=== PATIENT | female | born 1960 | race Caucasian/White ===

== ENCOUNTER 2016-10-16 09:59 | Emergency (ER) | payer OTHER ==
[~2016-10-16] VITALS: Ht 152.4 cm; Wt 56.7 kg
[2016-10-16 12:27] VITALS: BP 131/74
== END 2016-10-16 12:27 | disposition home or self-care (01) ==
LOC: ED 09:59
DX: M25.512 Pain in left shoulder (principal); M75.92 Shoulder lesion, unspecified, left shoulder; Z88.2 Allergy status to sulfonamides

== ENCOUNTER 2017-10-23 06:53 | Emergency (ER) | payer OTHER ==
[~2017-10-23] VITALS: Ht 157.5 cm; Wt 61.2 kg
[2017-10-23 07:38] VITALS: BP 123/75
== END 2017-10-23 07:38 | disposition home or self-care (01) ==
LOC: ED 06:53
DX: T36.0X5A Adverse effect of penicillins, initial encounter (principal); Z88.2 Allergy status to sulfonamides; Y92.89 Other specified places as the place of occurrence of the external cause
CPT/HCPCS: J7512